=== PATIENT | female | born 1995 | race African-American/Black ===

== ENCOUNTER 2018-05-23 23:12 | Emergency (ER) | payer OTHER ==
[2018-05-23 23:24] VITALS: BP 123/72; PULSE 90; TEMP 98.4; BMI 25.6
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
[2018-05-24] MEDS ORDERED: ACETAMINOPHEN 325 MG TABLET (FP) PO ONE (01:17)
[2018-05-24] MEDS ORDERED: ACETAMINOPHEN 325 MG TABLET (FP) ONE (01:28)
== END 2018-05-24 01:35 | disposition home or self-care (01) ==
LOC: JER 23:12
DX: O26.892 Other specified pregnancy related conditions, second trimester (principal); M54.5 Low back pain; M25.511 Pain in right shoulder; Z3A.14 14 weeks gestation of pregnancy; V43.62XA Car passenger injured in collision with other type car in traffic accident, initial encounter; Y92.412 Parkway as the place of occurrence of the external cause; Y93.89 Activity, other specified; Y99.8 Other external cause status
CPT/HCPCS: 99282-25